=== PATIENT | female | born 1970 | race Hispanic/Latino ===

== ENCOUNTER 2021-05-10 18:04 | Emergency (ER) | payer OTHER ==
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
[2021-05-10 20:58] VITALS: O2SAT 100
[2021-05-10 20:59] VITALS: BP 160/103
[2021-05-10 21:02] VITALS: TEMP 98.8
== END 2021-05-10 20:30 | disposition home or self-care (01) ==
LOC: ER 18:04
DX: G89.11 Acute pain due to trauma (principal); V49.40XA Driver injured in collision with unspecified motor vehicles in traffic accident, initial encounter
CPT/HCPCS: 71046